=== PATIENT | male | born 1955 ===

== ENCOUNTER → 2020-01-28 10:08 | Outpatient (BNVA) | payer MEDICARE, MEDICAID, SELFPAY | PROVIDERS: PCP Internal Medicine; Referring Provider Internal Medicine; Visit Provider Orthopaedic Surgery | DX: M22.2X1 Patellofemoral disorders, right knee (principal) | CPT/HCPCS: 20610; 99202; J1040 ==

== ENCOUNTER → 2020-08-11 14:07 | Outpatient (BNVA) | payer MEDICARE, MEDICAID, SELFPAY | PROVIDERS: PCP Internal Medicine; Visit Provider Orthopaedic Surgery | DX: M22.2X1 Patellofemoral disorders, right knee (principal) | CPT/HCPCS: 20610; 99212; J1040 ==

== ENCOUNTER 2021-08-19 07:25 | Outpatient (REF) | payer MEDICARE, MEDICAID, SELFPAY ==
--- NOTE | ~2021-08-19 | XR_ITS ---
EXAMINATION: XR BILATERAL AP KNEE XR RIGHT KNEE CLINICAL INFORMATION: Pain right knee. COMPARISON: None TECHNIQUE: Bilateral AP knee. Right knee 2 views. FINDINGS: BILATERAL AP KNEE: There is mild reduction in medial and lateral compartment right knee with genu varus deformity. Mild reduction in the medial and lateral compartment joint space left knee is noted as well. There is no visible acute fracture or dislocation seen. RIGHT KNEE: There is mild loss of patellofemoral compartment joint space inferior patellar spurring and anterior superior patellar enthesophytes. No abnormal joint effusion seen. There are no loose bodies. 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 Mild degenerative changes medial and lateral compartment left knee.
--- NOTE | ~2021-08-19 | XR_ITS ---
EXAMINATION: XR BILATERAL AP KNEE XR RIGHT KNEE CLINICAL INFORMATION: Pain right knee. COMPARISON: None TECHNIQUE: Bilateral AP knee. Right knee 2 views. FINDINGS: BILATERAL AP KNEE: There is mild reduction in medial and lateral compartment right knee with genu varus deformity. Mild reduction in the medial and lateral compartment joint space left knee is noted as well. There is no visible acute fracture or dislocation seen. RIGHT KNEE: There is mild loss of patellofemoral compartment joint space inferior patellar spurring and anterior superior patellar enthesophytes. No abnormal joint effusion seen. There are no loose bodies. 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 Mild degenerative changes medial and lateral compartment left knee.
== END 2021-08-19 07:26 | disposition home or self-care (01) ==
LOC: HO.HOSX 07:25
PROVIDERS: Visit Provider Physician Assistant
DX: M17.11 Unilateral primary osteoarthritis, right knee (principal)
CPT/HCPCS: 20610; 73560; 73565; 99212; J1020

== ENCOUNTER 2022-05-15 08:51 | Outpatient (REF) | payer MEDICARE, MEDICAID, SELFPAY ==
--- NOTE | ~2022-05-15 | XR_ITS ---
EXAMINATION: XR KNEES, STANDING AP BILATERAL XR KNEE, RIGHT XR KNEE, LEFT CLINICAL INFORMATION: Bilateral knee pain. COMPARISON: Standing AP knees and right knee radiographs 09/05/2021. TECHNIQUE: Bilateral standing AP view of the knees is performed. Each knee is also imaged in lateral and axial patella views. FINDINGS: Right: Normal bony mineralization. No fracture, dislocation, destructive process. There is borderline thickening suprapatellar bursa consistent with trace effusion. Hoffa's fat pad appears normal. There is no definite medial lateral knee joint compartment narrowing, erosive change, or chondrocalcinosis. There are osteophytes from the medial femoral condyle and medial tibial plateau and lateral patella. Borderline narrowing lateral patellofemoral joint. No lateralization or tilting patella. Left: Normal bony mineralization. No fracture, dislocation, destructive process. There there is a moderate to large suprapatellar effusion. Hoffa's fat pad appears normal. There is no definite knee joint compartment narrowing, erosive change, or chondrocalcinosis. No significant lateralization patella. Tiny lateral patellar spur. XR/XR knee LT 2V IMPRESSION: Right: -Borderline narrowing lateral patellofemoral joint. Probable trace effusion. -Spurring medial femoral condyle and tibial plateau without joint narrowing or erosive change. Left: -Moderate to large suprapatellar effusion. -No focal joint narrowing or erosive change.
--- NOTE | ~2022-05-15 | XR_ITS ---
EXAMINATION: XR KNEES, STANDING AP BILATERAL XR KNEE, RIGHT XR KNEE, LEFT CLINICAL INFORMATION: Bilateral knee pain. COMPARISON: Standing AP knees and right knee radiographs 09/05/2021. TECHNIQUE: Bilateral standing AP view of the knees is performed. Each knee is also imaged in lateral and axial patella views. FINDINGS: Right: Normal bony mineralization. No fracture, dislocation, destructive process. There is borderline thickening suprapatellar bursa consistent with trace effusion. Hoffa's fat pad appears normal. There is no definite medial lateral knee joint compartment narrowing, erosive change, or chondrocalcinosis. There are osteophytes from the medial femoral condyle and medial tibial plateau and lateral patella. Borderline narrowing lateral patellofemoral joint. No lateralization or tilting patella. Left: Normal bony mineralization. No fracture, dislocation, destructive process. There there is a moderate to large suprapatellar effusion. Hoffa's fat pad appears normal. There is no definite knee joint compartment narrowing, erosive change, or chondrocalcinosis. No significant lateralization patella. Tiny lateral patellar spur. XR/XR knee standing BI IMPRESSION: Right: -Borderline narrowing lateral patellofemoral joint. Probable trace effusion. -Spurring medial femoral condyle and tibial plateau without joint narrowing or erosive change. Left: -Moderate to large suprapatellar effusion. -No focal joint narrowing or erosive change.
--- NOTE | ~2022-05-15 | XR_ITS ---
EXAMINATION: XR KNEES, STANDING AP BILATERAL XR KNEE, RIGHT XR KNEE, LEFT CLINICAL INFORMATION: Bilateral knee pain. COMPARISON: Standing AP knees and right knee radiographs 09/05/2021. TECHNIQUE: Bilateral standing AP view of the knees is performed. Each knee is also imaged in lateral and axial patella views. FINDINGS: Right: Normal bony mineralization. No fracture, dislocation, destructive process. There is borderline thickening suprapatellar bursa consistent with trace effusion. Hoffa's fat pad appears normal. There is no definite medial lateral knee joint compartment narrowing, erosive change, or chondrocalcinosis. There are osteophytes from the medial femoral condyle and medial tibial plateau and lateral patella. Borderline narrowing lateral patellofemoral joint. No lateralization or tilting patella. Left: Normal bony mineralization. No fracture, dislocation, destructive process. There there is a moderate to large suprapatellar effusion. Hoffa's fat pad appears normal. There is no definite knee joint compartment narrowing, erosive change, or chondrocalcinosis. No significant lateralization patella. Tiny lateral patellar spur. XR/XR knee RT 2V IMPRESSION: Right: -Borderline narrowing lateral patellofemoral joint. Probable trace effusion. -Spurring medial femoral condyle and tibial plateau without joint narrowing or erosive change. Left: -Moderate to large suprapatellar effusion. -No focal joint narrowing or erosive change.
== END 2022-05-15 08:52 | disposition home or self-care (01) ==
LOC: HO.HOSX 08:51
PROVIDERS: Visit Provider Orthopaedic Surgery
DX: M17.0 Bilateral primary osteoarthritis of knee (principal); E11.9 Type 2 diabetes mellitus without complications
CPT/HCPCS: 20610; 73560; 73565; 99212; J1100

== ENCOUNTER → 2022-06-29 14:44 | Outpatient (BNVA) | payer MEDICARE, MEDICAID, SELFPAY | PROVIDERS: PCP Internal Medicine; Visit Provider Orthopaedic Surgery | DX: M17.0 Bilateral primary osteoarthritis of knee (principal); E11.9 Type 2 diabetes mellitus without complications | CPT/HCPCS: 99212 ==